=== PATIENT | male | born 1945 | race Caucasian/White ===

== ENCOUNTER 2017-01-24 03:17 | Inpatient (IN) | payer MEDICARE ==
[2017-01-24] VITALS (13 sets, daily range): BP systolic 31–101; BP diastolic 11–61; PULSE 58–129; RESP 18–28; TEMP 97.4; O2SAT 20–95
[~2017-01-24] VITALS: Ht 182.9 cm; Wt 110.0 kg
[~2017-01-24 03:17] MED LIST: FISHCAP PO; LIPI10TA PO; ST JTAB PO; TAB-TAB PO
[2017-01-24] MEDS ORDERED: NITROGLYCERIN 0.4 MG SL 25 TABS/BTL SL STA (03:24)
[2017-01-24] MEDS ORDERED: SODIUM CHLOR 0.9% 1000 ML INJ 1,000 ML IV ONE ×3 (03:24→03:45)
[2017-01-24] MEDS ORDERED: SODIUM CHLORIDE 0.9% FLUSH 10 ML FLUSH IVF PRN ×2 (03:30→03:45)
[2017-01-24] MEDS ORDERED: NITROGLYCERIN-DEXTROSE INJ 250 ML IV SCH (03:30)
[2017-01-24] MEDS ORDERED: CYCL1TAB29 PO (03:34)
[2017-01-24] MEDS ORDERED: TAMS0.4C4 PO (03:34)
--- NOTE | 2017-01-24 03:34 | PD ---
HPI Chief Complaint: STEMI Alert Time Seen by Provider: 03:24 Travel History International Travel<30 days: No Contact w/Intl Traveler<30days: No Traveled to known affect area: No History of Present Illness HPI The patient is a 71 year old male who presents to the [facility] emergency department with a history of back pain that first began on Tuesday evening in the upper mid back and lasted for 3 hours and then spontaneously resolved. The patient's and the patient reports that at 11 PM he began to have back pain associated with chest pain. He reports that the pain is in the center of his chest and is constant. He reports that it is a 9 out of 10 in severity and feels like he is being punched in the chest. He reports that he has shortness of breath associated with this. He denies having any prior history of myocardial infarction. He denies seeing a vocational trainer. He is currently under radiation therapy for prostate cancer. He reports having history of hyperlipidemia that is managed with diet. He denies any history of hypertension or diabetes mellitus. The patient reports having diaphoresis and nausea. He denies having any vomiting. He denies having any abdominal pain. The patient denies any recent fevers, cough, congestion, neck pain, diarrhea, urinary symptoms, or neurologic symptoms. PFSH Past Medical History Narrative Medical The patient's past medical history is significant for prostate cancer, hyperlipidemia that is managed by diet. Cancer: Yes (prostate CA) Cardiovascular Problems: No Diabetes: No Endocrine: No Genitourinary: No Hepatitis: No Hiatal Hernia: No Hypertension: Yes Immune Disorder: No Musculoskeletal: No Neurologic: No Psychiatric: No Respiratory: No Thyroid Disease: No Past Surgical History Narrative Surgical The patient's past surgical history is significant for prostate biopsies, tonsillectomy, appendectomy. Abdominal Surgery: Yes (APPY) AICD: No Body Medical Devices: N/A Cardiac Surgery: No Ear Surgery: No Endocrine Surgery: No Eye Surgery: No Genitourinary Surgery: Yes (PROSTATE BX'S) Joint Replacement: No Oral Surgery: Yes (TONSILLECTOMY) Pacemaker: No Thoracic Surgery: No Social History Alcohol Use: No Tobacco Use: No Substance Use: No Allergies-Medications (Allergen,Severity, Reaction): Coded Allergies: No Known Allergies (Unverified , 01/24/17) Reported Meds & Prescriptions Reported Meds & Active Scripts Active Reported Flexeril (Cyclobenzaprine HCl) 10 Mg Tab 10 Mg PO TID Tamsulosin (Tamsulosin HCl) 0.4 Mg Cap 0.4 Mg PO HS Review of Systems Except as stated in HPI: all other systems reviewed are Neg General / Constitutional: No: Fever Eyes: No: Visual changes HENT: No: Headaches Cardiovascular: Positive: Chest Pain or Discomfort, Dyspnea on exertion Respiratory: Positive: Shortness of Breath Gastrointestinal: No: Abdominal Pain Genitourinary: No: Dysuria Musculoskeletal: No: Pain Skin: No Rash Neurologic: No: Weakness Psychiatric: No: Depression Endocrine: No: Polydipsia Hematologic/Lymphatic: No: Easy Bruising Physical Exam Narrative General: The patient is a well-developed well-nourished male, uncomfortable appearing on arrival, pale appearing, slightly diaphoretic reporting chest pain that is 9 out of 10 in severity. The patient's blood pressure initially on arrival is in the 70s systolic. Head and Neck exam: Head is normocephalic atraumatic. Eyes: EOMI, pupils are equal round and reactive to light. Nose: Midline septum with pink mucous membranes Mouth: Dentition unremarkable. Moist mucus membranes. Posterior oropharynx is not erythematous. No tonsillar hypertrophy. Uvula midline. Airway patent. Neck: No palpable lymphadenopathy. No nuchal rigidity. No thyromegaly. Cardiovascular: Regular rate and rhythm without murmurs, gallops, or rubs. Heart rate is in the 90s Lungs: Clear to auscultation bilaterally. No wheezes, rhonchi, or rales. Abdomen: Soft, without tenderness to palpation in all 4 quadrants of the abdomen. No guarding, rebound, or rigidity. Normal bowel sounds are audible. The patient has an umbilical hernia that is reducible on palpation. No focal tenderness on palpation. No palpable pulsatile mass. Extremities: No clubbing, cyanosis, or edema. 2+ pulses in bilateral upper extremities. No calf tenderness on palpation Back: No spinous process tenderness to palpation. No costovertebral angle tenderness to palpation. Neurologic Exam: Grossly nonfocal. Skin Exam: No rash noted. Intact skin that is warm and slightly diaphoretic. Data Data Last Documented VS Vital Signs Date Time Temp Pulse Resp B/P Pulse Ox O2 Delivery O2 Flow Rate FiO2 01/24/17 04:20 129 20 86/51 4/3/17 04:02 100 01/24/17 03:58 83 01/24/17 03:46 Non-Rebreather 15 01/24/17 03:20 97.4 Orders Troponin I (01/24/17 03:24) Ckmb (Isoenzyme) Profile (01/24/17 03:24) Complete Blood Count With Diff (01/24/17 03:24) I-Stat Profile (01/24/17 03:24) I-Stat Creatinine (01/24/17 03:24) Calcium (01/24/17 03:24) Magnesium (Mg) (01/24/17 03:24) Prothrombin Time / Inr (Pt) (01/24/17 03:24) Act Partial Throm Time (Ptt) (01/24/17 03:24) B-Type Natriuretic Peptide (01/24/17 03:24) Chest, Single Ap (01/24/17 03:24) Electrocardiogram (01/24/17 03:24) Oxygen Administration (01/24/17 03:24) Iv Access Insert/Monitor (01/24/17 03:24) Oximetry (01/24/17 03:24) Sodium Chlor 0.9% 1000 Ml Inj (Ns 1000 M (01/24/17 03:24) Sodium Chloride 0.9% Flush (Ns Flush) (01/24/17 03:30) Nitroglycerin Sl (Nitrostat Sl) (01/24/17 03:24) Nitroglycerin-Dextrose Inj (Nitroglyceri (01/24/17 03:30) Aspirin Chew (Aspirin Chew) (01/24/17 09:00) Sodium Chlor 0.9% 1000 Ml Inj (Ns 1000 M (01/24/17 03:45) Sodium Chlor 0.9% 1000 Ml Inj (Ns 1000 M (01/24/17 03:45) Norepinephrine Inj (Levophed Inj) (01/24/17 03:47) Heparin-Ns/Pf Inj (Heparin-Ns/Pf Inj) (01/24/17 03:48) Norepinephrine-Dextrose Drip (Levophed-D (01/24/17 03:45) Terbutaline Inj (Brethine Inj) (01/24/17 03:45) Iv Access Insert/Monitor (01/24/17 03:44) Etomidate Inj (Amidate Inj) (01/24/17 03:45) Succinylcholine Inj (Quelicin Inj) (01/24/17 03:45) Sodium Chloride 0.9% Flush (Ns Flush) (01/24/17 03:45) Propofol 1000 Mg/100 Ml Inj (Diprivan 10 (01/24/17 03:45) ^ Infusion (01/24/17 03:44) RASS (01/24/17 03:44) Neurological Rass Scale JEAN.Q2H (01/24/17 03:44) Chest, Single Ap (01/24/17 ) Midazolam Inj (Versed Inj) (01/24/17 04:15) Rocuronium Inj (Zemuron Inj) (01/24/17 04:15) Midazolam Inj (Versed Inj) (01/24/17 04:12) Admit Order (Ed Use Only) (01/24/17 04:21) CKMB (01/24/17 03:20) CKMB% (01/24/17 03:20) Labs Laboratory Tests Test 01/24/17 03:20 White Blood Count 9.2 TH/MM3 Red Blood Count 4.87 MIL/MM3 Hemoglobin 15.4 GM/DL Bedside Hemoglobin 15.6 G/DL Hematocrit 45.6 % Bedside Hematocrit 46.0 % Mean Corpuscular Volume 93.7 FL Mean Corpuscular Hemoglobin 31.7 PG Mean Corpuscular Hemoglobin 33.8 % Concent Red Cell Distribution Width 14.1 % Platelet Count 180 TH/MM3 Mean Platelet Volume 8.4 FL Neutrophils (%) (Auto) 77.0 % Lymphocytes (%) (Auto) 14.8 % Monocytes (%) (Auto) 6.5 % Eosinophils (%) (Auto) 1.1 % Basophils (%) (Auto) 0.6 % Neutrophils # (Auto) 7.1 TH/MM3 Lymphocytes # (Auto) 1.4 TH/MM3 Monocytes # (Auto) 0.6 TH/MM3 Eosinophils # (Auto) 0.1 TH/MM3 Basophils # (Auto) 0.1 TH/MM3 CBC Comment DIFF FINAL Differential Comment Prothrombin Time 11.9 SEC Prothromb Time International 1.1 RATIO Ratio Activated Partial 27.1 SEC Thromboplast Time Bedside Sodium 137 MMOL/L Bedside Potassium 4.2 MMOL/L Bedside Chloride 103 MMOL/L Bedside Blood Urea Nitrogen 21 MG/DL Bedside Creatinine 2.2 MG/DL Bedside Glucose 169 MG/DL Calcium Level 9.1 MG/DL Magnesium Level 2.2 MG/DL Total Creatine Kinase 3442 U/L Creatine Kinase MB 426.8 NG/ML Creatine Kinase MB % 12.4 % Troponin I 20.10 NG/ML B-Type Natriuretic Peptide 41 PG/ML MDM Medical Decision Making Medical Screen Exam Complete: Yes Emergency Medical Condition: Yes Medical Record Reviewed: Yes Interpretation(s) Last Impressions Chest X-Ray 01/24/17 0324 Signed Impressions: Service Date/Time: Tuesday, January 24, 2017 03:50 - CONCLUSION: Bilateral pulmonary infiltrates. Ranjan Lovett Jr., MD Chest X-Ray 01/24/17 0000 Signed Impressions: Service Date/Time: Tuesday, January 24, 2017 03:53 - CONCLUSION: 1. Tip of the endotracheal tube 5 cm proximal to the amy. 2. Some worsening of the diffuse bilateral pulmonary infiltrates. Ranjan Lovett Jr., MD Differential Diagnosis STEMI, versus dissecting aortic aneurysm, versus new-onset congestive heart failure Narrative Course During the course of the patients emergency department visit, the patients history, examination, and differential diagnosis were reviewed with the patient. The patient had IV access obtained and blood work sent for analysis. An EKG was done on arrival that reveals evidence of an acute ST segment elevation myocardial infarction. A STEMI alert was called. As the patient is hypotensive and also complaining of back pain I did discuss with the patient's vocational trainer my concern about the dissecting aneurysm. He plans to come in to take the patient to the cardiac catheterization lab. He agreed with the plan to hold off on heparin administration. The patient was provided a liter of normal saline wide open on a pressure bag 1. The patient was given aspirin 162 mg by mouth 1. The patient continued to be hypotensive, another bag of normal saline was added to his IV fluid. Preparations were made to intubate the patient after the chest x-ray revealed bilateral pulmonary edema which I was concerned with likely worsen with the IV fluid resuscitation for hypotension. The patient was placed on a Levophed drip. I spoke to the vocational trainer again by phone to discuss this further with him. He was agreeable with the plan to proceed with rapid sequence intubation. The patient was intubated by me with an 8 size endotracheal tube. Due to the patient's blood pressure being low, propofol was held for sedation and the patient was given Versed 2.5 mg IV. The patient had a Jha catheter placed to gravity. The patient had an OG tube placed to low intermittent suction. Dr. Salcedo arrived at the bedside to assume care of the patient. The patient's blood pressure began to improve on the drip and was transported to CT scan for CTA prior to going of to the [facility]. The patients laboratory studies were reviewed and remarkable for a CBC that shows a white count of 9.2 with a hemoglobin of 15.4, platelets 180 with 77 neutrophils, i-STAT with creatinine was remarkable for sodium of 137, creatinine 2.2, glucose 169, CPK 3442 with an MB percent of 12.4, troponin I 20.1, BNP is 41, PT 11.9, INR 1.1, PTT 27.1. Radiology studies were reviewed and remarkable for bilateral pulmonary edema. While the patient was in CT, the patient went into cardiopulmonary arrest and ACLS protocol was started. Dr. Salcedo was available at the patient's bedside to assist with care. He was initially running the code. I came down to CT to assess further. He went to discuss the patient's current critical condition with his . The patient went into cardiopulmonary arrest at approximately 4: 34 AM. The patient was given doses of bicarbonate, epinephrine, calcium chloride, and then proceeded to have a rhythm that appeared to be ventricular tachycardia without a pulse, therefore the patient was defibrillated. The patient was given amiodarone 300 mg IV. Compressions were continued throughout the course of the patient's cardiopulmonary arrest. The patient had a brief return of pulse. Unfortunately, again while CT scan was attempted on the patient the patient again went into a bradycardic rhythm with a low blood pressure. The patient was maxed out on dopamine and Levophed. Dr. Salcedo again spoke to the patient 's while I assessed the patient. She explained that if the patient went into cardiopulmonary arrest again she would not want resuscitation to be continued at this point. The patient again went into cardiac arrest. The patient's time of was called at 5:16 AM. Critical Care Narrative Aggregate critical care time was 55 minutes. Time to perform other separately billable procedures was not included in the critical care time. My time did not include minutes spent treating any other patients simultaneously or on activities that did not directly contribute to the patient's treatment. The services I provided to this patient were to treat and/or prevent clinically significant deterioration that could result in: Hypoxic encephalopathy, versus cardiovascular collapse I provided critical care services requiring my management, as noted below: Chart data review, documentation time, medication orders and management, vital sign assessments/reviewing monitor data, ordering and reviewing lab tests, ordering and interpreting/reviewing x-rays and diagnostic studies, care of the patient and discussion of the patient with the admitting physicians. Procedures Procedure Narrative The patient was put in optimal position for the procedure. Rapid sequence intubation was initiated by me using 20 milligrams of etomidate IV and 100 milligrams of succinylcholine IV. The patient was intubated using the glidescope with an 8 cuffed endotracheal tube. Tube placement was confirmed by visualization of the tube and balloon passing through the cords, capnometry and subsequent chest x-ray. Breath sounds were equal and well aerated bilaterally postintubation. No breath sounds over stomach. Patient tolerated procedure well. Physician Communication Physician Communication I spoke to Dr. Salcedo regarding this patient's case at approximately 3:25 AM. Due to the patient's hypotension the possibility of a dissection, he agreed that heparin should be held at the moment. He plans to take the patient to the [facility]. Diagnosis Primary Impression: STEMI (ST elevation myocardial infarction) Qualified Code: I21.3 - ST elevation myocardial infarction (STEMI), unspecified artery Additional Impression: Cardiopulmonary arrest Admitting Information Admitting Physician Requests: Admit Mary Luis MD Jan 24, 2017 03:34
[2017-01-24] MEDS ORDERED: SUCCINYLCHOLINE CHLORIDE 200 MG/10 ML VIAL IVP ONE (03:45)
[2017-01-24] MEDS ORDERED: NOREPINEPHRINE-DEXTROSE DRIP 250 ML IV SCH (03:45)
[2017-01-24] MEDS ORDERED: PROPOFOL 1000 MG/100 ML INJ 100 ML IV SCH (03:45)
[2017-01-24] MEDS ORDERED: ETOMIDATE 20 MG/10 ML VIAL IVP ONE (03:45)
[2017-01-24] MEDS ORDERED: TERBUTALINE INJ 1 MG/ML AMP SQ PRN (03:45)
[2017-01-24] MEDS ORDERED: NOREPINEPHRINE 4 MG/4 ML AMP ONE (03:47)
[2017-01-24] MEDS ORDERED: HEPARIN-NS/PF INJ 500 ML ONE (03:48)
[2017-01-24 03:51] LABS: I-STAT POTASSIUM 4.2 MMOL/L (3.5-4.9)
--- NOTE | 2017-01-24 03:54 | RADRPT ---
EXAM DATE/TIME: 01/24/2017 03:50 [facility] COMPARISON: No previous studies available for comparison. INDICATIONS : Stemi alert. MEDICAL HISTORY : Unobtainable. SURGICAL HISTORY : Unobtainable. ENCOUNTER: Initial ACUITY: 1 day PAIN SCORE: 10/10 LOCATION: chest FINDINGS: A single portable frontal view of the chest shows bilateral pulmonary infiltrates. These are mixed in terstitial and intra-alveolar. The infiltrate is most pronounced within the bases. No effusions. Hear t is normal in size. A degenerative thoracic spine. CONCLUSION: Bilateral pulmonary infiltrates. Ranjan Lovett Jr., MD on January 24, 2017 at 3:52 Board Certified Radiologist. This report was verified electronically.
[2017-01-24 03:55] LABS: AUTOMATED NEUTROPHIL # 7.1 TH/MM3 (1.8-7.7); BASOPHIL # 0.1 TH/MM3 (0-0.2); BASOPHIL % 0.6 % (0.0-2.0); EOSINOPHIL # 0.1 TH/MM3 (0-0.4); EOSINOPHIL % 1.1 % (0.0-4.0); HEMATOCRIT 45.6 % (39.0-51.0); HEMO FLAGS DIFF FINAL; LYMPH % 14.8 % (9.0-44.0); LYMPHOCYTE # 1.4 TH/MM3 (1.0-4.8); MEAN CELL VOLUME 93.7 FL (80.0-100.0); MEAN CORPUSCULAR HEMOGLOBIN 31.7 PG (27.0-34.0); MEAN CORPUSCULAR HGB CONC 33.8 % (32.0-36.0); MONO % 6.5 % (0.0-8.0); PLATELET COUNT 180 TH/MM3 (150-450); RED BLOOD COUNT 4.87 MIL/MM3 (4.50-5.90); RED CELL DISTRIBUTION WIDTH 14.1 % (11.6-17.2); WHITE BLOOD COUNT 9.2 TH/MM3 (4.0-11.0)
[2017-01-24 04:02] LABS: APTT (PATIENT) 27.1 SEC (24.3-30.1); INTERNATIONAL NORMALIZED RATIO 1.1 RATIO; PROTHROMBIN TIME - PATIENT 11.9 SEC (9.8-11.6)
[2017-01-24 04:07] LABS: MAGNESIUM 2.2 MG/DL (1.5-2.5)
[2017-01-24] MEDS ORDERED: MIDAZOLAM HCL 5 MG/ML VIAL (1 ML) ONE (04:12)
[2017-01-24] MEDS ORDERED: ROCURONIUM INJ 50 MG/5 ML VIAL IV ONE (04:15)
[2017-01-24] MEDS ORDERED: MIDAZOLAM HCL 5 MG/5 ML VIAL IV PUSH ONE (04:15)
--- NOTE | 2017-01-24 04:38 | RADRPT ---
EXAM DATE/TIME: 01/24/2017 03:53 [facility] COMPARISON: CHEST SINGLE AP, January 24, 2017, 3:50. INDICATIONS : Post intubation. MEDICAL HISTORY : Unobtainable. SURGICAL HISTORY : Unobtainable. ENCOUNTER: Initial ACUITY: 1 day PAIN SCORE: Non-responsive. LOCATION: chest FINDINGS: A single portable frontal view of the chest omits the right lung base. Tip of the endotracheal tube i s 5 cm proximal to the amy. Tip of the nasogastric tube courses off the inferior margin of the melissa m. Diffuse bilateral pulmonary infiltrates have progressed slightly from the earlier study. No discre te effusions. Heart is normal in size. CONCLUSION: 1. Tip of the endotracheal tube 5 cm proximal to the amy. 2. Some worsening of the diffuse bilateral pulmonary infiltrates. Ranjan Lovett Jr., MD on January 24, 2017 at 4:35 Board Certified Radiologist. This report was verified electronically.
[2017-01-24 04:49] LABS: CKMB 426.8 NG/ML (0.5-3.6)
[2017-01-24] MEDS ORDERED: ASPIRIN 81 MG CHEW TAB CHEW SCH (09:00)
[2017-01-24] MEDS ORDERED: DOPamine INJ PREMIX 500 ML IV ONE (09:06)
[2017-01-24] MEDS ORDERED: NOREPINEPHRINE 4 MG/4 ML AMP IV ONE (09:06)
[2017-01-24] MEDS ORDERED: AMIODARONE HCL 150 MG/3 ML VIAL IV ONE (09:06)
[2017-01-24] MEDS ORDERED: ATROPINE SULFATE 1 MG/10 ML SYRINGE IV ONE (09:06)
[2017-01-24] MEDS ORDERED: CALCIUM CHLORIDE 10% SOLN 1 GRAM/10 ML SYR IV ONE (09:06)
[2017-01-24] MEDS ORDERED: SODIUM BICARBONATE 8.4% INJ 50 MEQ/50 ML SYR IV ONE (09:06)
[2017-01-24] MEDS ORDERED: EPINEPHrine HCL (1:10,000) 1 MG/10 ML SYRINGE IV ONE ×2 (09:06)
--- NOTE | 2017-01-24 10:32 | EKG ---
Date Performed: 01/24/2017 Time Performed: 03:22:57 PTAGE: 71 years EKG: Sinus rhythm POSSIBLE RIGHT VENTRICULAR CONDUCTION DELAY MARKED ST ELEVATION, CONSIDER Posterior and ANTEROLATERA L myocardial INJURY ACUTE DC INTERPRETATION BASED ON A DEFAULT AGE OF 39 YEARS PREVIOUS TRACING : 09/22/2015 12.20 DOCTOR: Rk Kan Interpretating Date/Time 01/24/2017 10:31:58
--- NOTE | 2017-01-25 07:30 | MB ---
cc: SHLOMO GONZALEZ DO DATE OF CONSULTATION 01/24/2017 REASON FOR CONSULTATION STEMI HISTORY OF PRESENT ILLNESS Elias Harris is a 71-year-old male who originally presented to [facility] on January 24, 2017 due to chest pain. He originally started with upper, middle back pain that lasted for three hours the night before. He took a warm shower and per the , she could hear him moaning. The pain then spontaneously resolved. He then started having back pain associated with chest pain at around 11:00 p.m. on January 23, 2017. He then started noticing the chest pain in the center his chest was constant and a 9/10. He was also short of breath with it. He presented to [facility] emergency room at 03:17 a.m. on January 24, 2017. EKG on arrival showed ST elevations in the lateral leads with ST depressions anteriorly. I was called emergently for consideration of cardiac catheterization. At that time, speaking with Dr. Luis, his blood pressure was 80/50 and I felt that due to his symptoms, as well as his blood pressure, dissection should be ruled out. Upon my arrival, his blood pressure was 70/40 and they had started him on Levophed and intubating him. After intubation, we attempted to get him to the CT scan to rule out a dissection. On arrival to the CT scan, his heart rate went from 130 bpm to 40 bpm. At that time, no pulse was felt. CPR was started which lasted for 15-20 minutes. During this, he received four rounds of epinephrine as well as bicarbonate and calcium chloride. At one-time during the CPR, he was noted to be in ventricular tachycardia without a pulse and was defibrillated. He was given amiodarone 300 mg IV. Compressions were continued. At that time, I went to speak to his and explained the situation. When I returned, he had spontaneous return of pulses, although extremely hypotensive. Once again, he went bradycardic and further hypotensive and was without pulse. CPR was then restarted for another 10 minutes. He once again received epinephrine during this. He had spontaneous return of pulses and was extremely hypotensive so he was started on dopamine. I once again spoke to the an explain his current extremely critical nature. While speaking to her, he once again loss pulses and CPR was started. While talking to her, she explained that he would not want to live without full functional capacity. At that time, she asked that all life saving measures be stopped. CPR was stopped at that time and Levophed and dopamine were stopped. The patient passed at 05:16 a.m. on January 24, 2017. PAST MEDICAL HISTORY 1. Prostate cancer 2. Hyperlipidemia 3. Hypertension PAST SURGICAL HISTORY 1. Prostate biopsy 2. Tonsillectomy 3. Appendectomy ALLERGIES NO KNOWN DRUG ALLERGIES. MEDICATIONS 1. Flexeril 2. Flomax SOCIAL HISTORY Denies tobacco, alcohol or drugs. FAMILY HISTORY Unable to obtain due to the critical nature. REVIEW OF SYSTEMS As the patient was being intubated, I was unable to fully obtain review of systems. Review of systems are from the ER chart as above. PHYSICAL EXAMINATION VITAL SIGNS: On my arrival, temperature 97.4, heart rate 83, blood pressure 73/48, respirations 25, pulse ox 93% on five liters. GENERAL: In general, the patient appears in extreme distress due to chest pain. HEAD, EYES, EARS, NOSE, AND THROAT: Extraocular muscles intact. Mucous membranes moist. NECK: Supple with JVD noted bilaterally. HEART: Regular rate and rhythm. Positive first and second heart sounds with no murmurs noted. LUNGS: Decreased breath sounds bilaterally with rales. ABDOMEN: Soft, nontender, nondistended. EXTREMITIES: Show no clubbing, cyanosis or edema, but are cool in nature. NEUROLOGIC: The patient is spontaneously moving all limbs. SKIN: Cool and dry. LABORATORY FINDINGS Hemoglobin 15.4, hematocrit 45.6, platelets 180. Potassium 4.2, creatinine 2.2, troponin 20.1. Electrocardiogram (January 24, 2017 at 0322) sinus rhythm, ST elevations laterally with ST depressions anteriorly consistent with a lateral posterior myocardial infarction. IMPRESSIONS 1. Acute lateral posterior STEMI. 2. Cardiopulmonary arrest requiring multiple rounds of epinephrine, calcium and bicarbonate as well as multiple rounds of CPR. 3. Bilateral pulmonary infiltrates most likely due to pulmonary edema. 4. Cardiogenic shock requiring multiple pressors 5. Vent dependent respiratory failure. 6. Acute kidney injury versus chronic kidney disease. 7. Concern for possible aortic dissection due to symptoms. 8. Significant hypoxia most likely due to pulmonary edema. RECOMMENDATIONS 1. Mr. Harris unfortunately at the 05:16 a.m. on January 24, 2017. 2. He initially presented with a STEMI, but was not able to be stabilized to get his CT scan done or to get to the cardiac catheterization lab. 3. Greater than 60 minutes of critical care time was done personally including decision making, multiple rounds of CPR and discussing the situation with his . Shlomo Gonzalez DO VGP/DJL /6:48 PM /7:15 AM MTDD
== END 2017-01-24 09:07 | disposition expired ==
LOC: NEPC 03:17 → NEDA 04:22
PROVIDERS: ADMIT Nuclear Medicine Nuclear Cardiology; ATTEND Nuclear Medicine Nuclear Cardiology
PROC: 0BH17EZ Insertion of Endotracheal Airway into Trachea, Via Natural or Artificial Opening (ICD-10-PCS; principal; 2017-01-24)
PROC: 5A1935Z Respiratory Ventilation, Less than 24 Consecutive Hours (ICD-10-PCS; 2017-01-24)
PROC: 5A12012 Performance of Cardiac Output, Single, Manual (ICD-10-PCS; 2017-01-24)
DX: I21.29 ST elevation (STEMI) myocardial infarction involving other sites (principal); J96.91 Respiratory failure, unspecified with hypoxia; I46.9 Cardiac arrest, cause unspecified; J81.0 Acute pulmonary edema; I47.2 Ventricular tachycardia; N17.9 Acute kidney failure, unspecified; R57.0 Cardiogenic shock; E78.5 Hyperlipidemia, unspecified; I10 Essential (primary) hypertension; C61 Malignant neoplasm of prostate; Z92.3 Personal history of irradiation
CPT/HCPCS: 31500; 71010; 82310; 82435; 82550; 82552; 82565; 82947; 83735; 83880; 84132; 84295; 84484; 84520; 85025; 85610; 85730; 92950; 93005; 96365; 96375; J0171; J0282; J0330; J0461; J1265; J1644; J2250; J7030